=== PATIENT | female | born 1940 | race Caucasian/White ===

== ENCOUNTER 2017-04-10 09:01 | Outpatient (CLI) | payer MEDICARE, OTHER ==
[2017-04-10 18:08] LABS: BASOPHILS # (AUTO) 0.1 10^3/uL (0.0-0.1); BASOPHILS % (AUTO) 0.8 %; EOSINOPHILS # (AUTO) 0.3 10^3/uL (0.0-0.7); EOSINOPHILS % (AUTO) 3.1 %; HGB - HEMOGLOBIN 13.7 g/dL (12.0-16.0); LYMPHOCYTES # (AUTO) 2.9 10^3/uL (1.5-3.5); LYMPHOCYTES % (AUTO) 32.9 %; MEAN CORPUSCULAR HEMOGLOBIN 29.9 pg (27.0-31.0); MEAN CORPUSCULAR HGB CONC 32.5 g/dL (32.0-36.0); MEAN PLATELET VOLUME 8.3 fL (7.9-10.8); MONOCYTES # (AUTO) 0.7 10^3/uL (0.0-1.0); MONOCYTES % (AUTO) 8.2 %; NEUTROPHILS # (AUTO) 4.9 10^3/uL (1.5-6.6); PLT - PLATELET COUNT 241 10^3/uL (130-450); RED BLOOD COUNT 4.59 10^6/uL (4.20-5.40); RED CELL DISTRIBUTION WIDTH 13.2 % (12.0-15.0); WHITE BLOOD COUNT 8.9 x10^3/uL (4.8-10.8)
[2017-04-10 18:16] LABS: ALBUMIN/GLOBULIN RATIO 1.3 (1.0-2.2); ALKALINE PHOSPHATASE 73 IU/L (42-121); ALT ALANINE AMINOTRANSFERASE 16 IU/L (10-60); AST ASPARTATE AMINOTRANSFERASE 18 IU/L (10-42); BILIRUBIN,TOTAL 0.4 mg/dL (0.2-1.0); BUN - BLOOD UREA NITROGEN 18 mg/dL (6-20); CARBON DIOXIDE - CO2 26 mmol/L (21-32); CHLORIDE 104 mmol/L (101-111); CHOL/HDL RATIO 3.5 (<4.4); CHOLESTEROL 145 mg/dL; CREATININE 0.6 mg/dL (0.4-1.0); GFR - MDRD 97 (>89); GLUCOSE 97 mg/dL (70-100); HDL CHOLESTEROL 42 mg/dL; LDL CHOLESTEROL,CALCULATED 79 mg/dL; LDL/HDL RATIO 1.9 (<4.4); SODIUM 137 mmol/L (135-145); VLDL CHOLESTEROL 24 mg/dL
== END 2017-04-10 09:02 | disposition home or self-care (01) ==
LOC: LAB.F 09:01
PROVIDERS: ATTEND Physician Assistant Medical
DX: I10 Essential (primary) hypertension (principal); E55.9 Vitamin D deficiency, unspecified; E78.5 Hyperlipidemia, unspecified
CPT/HCPCS: 36415; 80053; 80061; 82306; 85025

== ENCOUNTER 2017-04-19 12:03 | Observation (INO) | payer MEDICARE, OTHER ==
[2017-04-19 12:44] LABS: BASOPHILS # (AUTO) 0.1 10^3/uL (0.0-0.1); BASOPHILS % (AUTO) 0.7 %; EOSINOPHILS # (AUTO) 0.2 10^3/uL (0.0-0.7); EOSINOPHILS % (AUTO) 2.3 %; HGB - HEMOGLOBIN 13.8 g/dL (12.0-16.0); LYMPHOCYTES # (AUTO) 3.1 10^3/uL (1.5-3.5); LYMPHOCYTES % (AUTO) 35.7 %; MEAN CORPUSCULAR HGB CONC 33.5 g/dL (32.0-36.0); MEAN CORPUSCULAR VOLUME 89.7 fL (81.0-99.0); MEAN PLATELET VOLUME 7.8 fL (7.9-10.8); MONOCYTES # (AUTO) 0.6 10^3/uL (0.0-1.0); MONOCYTES % (AUTO) 6.9 %; NEUTROPHILS # (AUTO) 4.7 10^3/uL (1.5-6.6); NEUTROPHILS % (AUTO) 54.4 %; PLT - PLATELET COUNT 227 10^3/uL (130-450); RED BLOOD COUNT 4.59 10^6/uL (4.20-5.40); RED CELL DISTRIBUTION WIDTH 13.2 % (12.0-15.0); WHITE BLOOD COUNT 8.6 x10^3/uL (4.8-10.8)
[2017-04-19 12:56] LABS: ALBUMIN/GLOBULIN RATIO 1.2 (1.0-2.2); BILIRUBIN,TOTAL 0.6 mg/dL (0.2-1.0); CALCIUM 9.5 mg/dL (8.5-10.3); CREATININE 0.7 mg/dL (0.4-1.0); TOTAL PROTEIN 7.3 g/dL (6.7-8.2)
--- NOTE | 2017-04-19 13:20 | XRAY Preliminary Report ---
Exam: XR CHEST 1 VIEW X-RAY IMPRESSION: 1. Clear lungs. 2. Tortuous aorta versus hiatal hernia. [facility] SITE ID: [id number]
--- NOTE | 2017-04-19 13:20 | XRAY Report ---
EXAM: CHEST RADIOGRAPHY EXAM DATE: 04/19/2017 12:49 PM. CLINICAL HISTORY: Chest pain COMPARISON: None. TECHNIQUE: 1 view. FINDINGS: Lungs/Pleura: No focal opacities evident. No pleural effusion. No pneumothorax. Mediastinum: There is a retrocardiac double density which is consistent with a tortuous aorta or hiat al hernia. The heart size appears upper normal. Other: None. IMPRESSION: 1. Clear lungs. 2. Tortuous aorta versus hiatal hernia. [facility] Referring Provider Line: [phone] SITE ID: [id number]
[2017-04-19] MEDS ORDERED: NITROGLYCERIN 2% PASTE TOP STA (13:41)
[2017-04-19] MEDS ORDERED: ASPIRIN CHEW 81 MG TABLET PO STA (13:41)
--- NOTE | 2017-04-19 13:50 | ED Physician Documentation ---
History of Present Illness - Stated complaint Stated Complaint: CHEST PX - Chief complaint Chief Complaint: Cardiac - Additonal information Additional information: hx from pt 76 female known CAD s/p stent 4 yr ago at [facility] in [place] this AM she had chest pain, started about 10 AM, 7/10 severity, felt similar to sx she had prior to her stent, no soa diaphoreis NV took 3 nitro over next 2 hr s relief does not take asa or plavix regularly went to [facility] and pain subsided down to 3/10 but not resolved Review of Systems Constitutional: denies: Fever, Chills, Fatigue, Sweats Throat: denies: Sore throat Cardiac: reports: Chest pain / pressure. denies: Palpitations Respiratory: denies: Dyspnea, Cough GI: denies: Abdominal Pain Musculoskeletal: denies: Neck pain, Back pain, Extremity pain, Extremity swelling Endocrine: denies: Easy bruising / bleeding Immunocompromised: denies: Immunocompromised PD PAST MEDICAL HISTORY - Present Medications Home Medications: Ambulatory Orders Medication Instructions Recorded Confirmed Atorvastatin [Lipitor] 40 mg PO DAILY 04/19/17 04/19/17 Ibuprofen [Motrin] 800 mg PO Q8H PRN 04/19/17 04/19/17 Losartan [Cozaar] 25 mg PO DAILY 04/19/17 04/19/17 Propranolol [Inderal] 04/19/17 - Allergies Allergies/Adverse Reactions: Allergies Allergy/AdvReac Type Severity Reaction Status Date / Time codeine Allergy Nausea Verified 04/19/17 12:10 morphine Allergy Nausea Verified 04/19/17 12:10 - Social History Does the pt smoke?: No Smoking Status: Never smoker PD ED PE NORMAL - Vitals Vital signs reviewed: Yes - Neck Neck: Supple, no meningeal sign - Cardiac Cardiac: RRR - Respiratory Respiratory: No respiratory distress, Clear bilaterally - Abdomen Abdomen: Soft, Non tender - Derm Derm: Normal color - Extremities Extremities: No edema, No calf tenderness / cord - Neuro Neuro: Alert and oriented X 3 Results - Vitals Vitals: Vital Signs - 24 hr 04/19/17 12:07 Temperature 36.0 C L Heart Rate 60 Respiratory 18 Rate Blood Pressure 191/67 H O2 Saturation 98 Oxygen O2 Source Room air - EKG (time done) 1215 Rate: Rate (enter#) (55) Rhythm: Atrial flutter Ischemia: Non specific changes (biphasic t waves laterally) - Labs Labs: Laboratory Tests 04/19/17 04/19/17 04/19/17 12:30 12:30 12:30 WBC 8.6 RBC 4.59 Hgb 13.8 Hct 41.2 MCV 89.7 MCH 30.0 MCHC 33.5 RDW 13.2 Plt Count 227 MPV 7.8 L Neut # 4.7 Lymph # 3.1 Gates # 0.6 Eos # 0.2 Baso # 0.1 Absolute Nucleated RBC 0.01 Nucleated RBC % 0.1 Sodium 136 Potassium 4.0 Chloride 100 L Carbon Dioxide 26 Anion Gap 10.0 BUN 19 Creatinine 0.7 Estimated GFR (MDRD) 81 L Glucose 99 Calcium 9.5 Total Bilirubin 0.6 AST 23 ALT 19 Alkaline Phosphatase 71 Troponin I < 0.04 Total Protein 7.3 Albumin 4.0 Globulin 3.3 Albumin/Globulin Ratio 1.2 Lipase 19 L - Rads (name of study) CXR Radiology: See rad report (NACPD, toruous aorta, HH) PD MEDICAL DECISION MAKING - ED course ED course: known CAD same sx as prior CAD onset 10 AM so approx 3 hr ago abn EKG trying to get old to compare gave nitro paste and asa no BB as already on and HR 60 old records obtained and EKG is changed HEART score 6 - will admit for serial enzymes and stress testing pain down to "between 0 and 1" at time of admit Departure - Departure Disposition: ED Place in Observation Clinical Impression: Chest pain Qualifiers: Chest pain type: unspecified Qualified Code(s): R07.9 - Chest pain, unspecified Discharge Date/Time: 04/19/17 15:19
[2017-04-19] MEDS ORDERED: SODIUM CHLORIDE FLUSH 0.9% 10 ML SYRINGE IVP PRN (14:04)
[2017-04-19] MEDS ORDERED: PROCHLORPERAZINE 10 MG/2 ML VIAL IVP PRN (14:04)
[2017-04-19] MEDS ORDERED: MORPHINE 2 MG/ML CARPUJECT IVP PRN (14:04)
[2017-04-19] MEDS ORDERED: oxyCODONE 5 MG TABLET PO PRN (14:04)
[2017-04-19] MEDS ORDERED: NITROGLYCERIN SL 0.4 MG TABLET SL PRN (14:04)
--- NOTE | 2017-04-19 14:34 | HISTORY & PHYSICAL EXAMINATION ---
Chief Complaint - Chief Complaint Chief Complaint: Chest Pain Chest Pain Admission HPI - Admitted From Admitted from: ED - History Obtained From Records Reviewed: RN notes reviewed History obtained from: Patient, Family Exam limitations: No limitations - History of Present Illness Severity at the worst: reports: Moderate Pain Quality: reports: Dull, Aching Context-Pain started w/: reports: Rest Timing: reports: Intermittent Improved with: reports: Rest Worsened by: reports: Exertion Associated symptoms: reports: General Weakness PMH/PSH - Past Medical History Cardiovascular: positive: Hypertension, High cholesterol, Coronary artery disease Respiratory: positive: None Neuro: positive: None Endocrine/Autoimmune: positive: None GI: positive: None 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 - Social History Does the pt smoke?: No Smoking Status: Never smoker Does the pt drink ETOH?: No Does the pt have substance abuse?: No - POLST Patient has POLST: No POLST Status: Full Code - Family History Family History: Mother: , COPD/Emphysema, Father: , Other family : Hyperlipidemia, Hypertension Meds/Allgy - Home Medications Home Medications: Ambulatory Orders Medication Instructions Recorded Confirmed Atorvastatin [Lipitor] 40 mg PO DAILY 04/19/17 04/19/17 Losartan [Cozaar] 04/19/17 Propranolol [Inderal] 04/19/17 - Allergies Allergies/Adverse Reactions: Allergies Allergy/AdvReac Type Severity Reaction Status Date / Time codeine Allergy Nausea Verified 04/19/17 12:10 morphine Allergy Nausea Verified 04/19/17 12:10 Review of Systems - Constitutional Constitutional: reports: Weakness. denies: Fever, Chills, Malaise - Eyes Eyes: denies: Pain, Irritation, Blurred vision - Ears, Nose & Throat Ears, Nose & Throat: denies: Ear pain, Hearing loss, Tinnitus, Vertigo, Nasal pain - Cardiovascular Cariovascular: reports: Chest pain. denies: Irregular heart rate, Palpitations , Edema, Syncope - Respiratory Respiratory: denies: Cough, Sputum production, Wheezing, Snoring, Hemoptysis - Gastrointestinal Gastrointestinal: denies: Abdominal pain, Constipation, Diarrhea, Change in bowel habits, Rectal bleeding - Genitourinary Genitourinary: denies: Dysuria, Frequency, Urgency, Hematuria - Musculoskeletal Musculoskeletal: denies: Muscle pain, Muscle aches, Stiffness, Gout - Integumentary Integumentary: denies: Rash, Pruritis, Lesions, Acne - Neurological Neurological: denies: Focal weakness, Headache, Dizziness, Numbness, Memory problems - Psychiatric Psychiatric: denies: Depression, Anxiety, Suicidal, Hallucinations - Endocrine Endocrine: denies: Polyuria, Polydypsia, Polyphagia - Hematologic/Lymphatic Hematologic/Lymphatic: denies: Anemia, Bruising, Petechiae, Lymphadenopathy - All Other Systems All Other Systems: reports: Reviewed and negative Exam - Vital Signs Vital Signs: Vital Signs x48h Temp Pulse Resp BP Pulse Ox 04/19/17 12:07 36.0 C L 60 18 191/67 H 98 Results - Lab Results Fish Bones: 04/19/17 12:30 04/19/17 12:30 Other Lab Results: Lab Results x24hrs 04/19/17 04/19/17 04/19/17 Range/Units 12:30 12:30 12:30 WBC 8.6 (4.8-10.8) x10^3/uL RBC 4.59 (4.20-5.40) 10^6/uL Hgb 13.8 (12.0-16.0) g/dL Hct 41.2 (37.0-47.0) % MCV 89.7 (81.0-99.0) fL MCH 30.0 (27.0-31.0) pg MCHC 33.5 (32.0-36.0) g/dL RDW 13.2 (12.0-15.0) % Plt Count 227 (130-450) 10^3/uL MPV 7.8 L (7.9-10.8) fL Neut # 4.7 (1.5-6.6) 10^3/uL Lymph # 3.1 (1.5-3.5) 10^3/uL [place] # 0.6 (0.0-1.0) 10^3/uL Eos # 0.2 (0.0-0.7) 10^3/uL Baso # 0.1 (0.0-0.1) 10^3/uL Absolute Nucleated RBC 0.01 x10^3/uL Nucleated RBC % 0.1 /100WBC Sodium 136 (135-145) mmol/L Potassium 4.0 (3.5-5.0) mmol/L Chloride 100 L (101-111) mmol/L Carbon Dioxide 26 (21-32) mmol/L Anion Gap 10.0 (6-13) BUN 19 (6-20) mg/dL Creatinine 0.7 (0.4-1.0) mg/dL Estimated GFR (MDRD) 81 L (>89) Glucose 99 (70-100) mg/dL Calcium 9.5 (8.5-10.3) mg/dL Total Bilirubin 0.6 (0.2-1.0) mg/dL AST 23 (10-42) IU/L ALT 19 (10-60) IU/L Alkaline Phosphatase 71 (42-121) IU/L Troponin I < 0.04 (<0.49) ng/mL Total Protein 7.3 (6.7-8.2) g/dL Albumin 4.0 (3.2-5.5) g/dL Globulin 3.3 (2.1-4.2) g/dL Albumin/Globulin Ratio 1.2 (1.0-2.2) Lipase 19 L (22-51) U/L ARRA - Anticipated LOS Anticipated Stay Length: Less than 2 midnights - AMI - Statin at Admit Aspirin Prescribed on Admit: Yes - DVT/VTE - Prophylaxis VTE/DVT Device ordered at admit?: Yes CP/CHF Plan - Plan Patient Problems: All Active Problems Chest pain (Acute)
[2017-04-19] MEDS ORDERED: LORazepam 2 MG/ML VIAL IVP STA (14:47)
[2017-04-19] MEDS: D5.45NS W/20 MEQ KCL 1,000 ML IV SCH (15:22)
[2017-04-19 19:30] LABS: CREATININE 0.9 mg/dL (0.4-1.0)
[2017-04-19] MEDS ORDERED: ATORVASTATIN 40 MG TABLET PO SCH (21:00)
[2017-04-19] MEDS: SODIUM CHLORIDE FLUSH 0.9% 10 ML SYRINGE IVP SCH (21:01)
[2017-04-19] MEDS: IBUPROFEN 600 MG TABLET PO SCH (22:07)
[2017-04-20] MEDS: IBUPROFEN 600 MG TABLET PO SCH ×2 (00:23→06:12)
[2017-04-20] MEDS: D5.45NS W/20 MEQ KCL 1,000 ML IV SCH (00:23)
[2017-04-20] MEDS: SODIUM CHLORIDE FLUSH 0.9% 10 ML SYRINGE IVP SCH (03:20)
[2017-04-20] MEDS ORDERED: LOSARTAN 50 MG TABLET PO SCH (09:00)
[2017-04-20] MEDS ORDERED: POLYETHYLENE GLYCOL 3350 17 GM PACKET PO SCH (09:00)
[2017-04-20 09:47] VITALS: BP 139/62
--- NOTE | 2017-04-20 10:34 | Discharge Plan ---
Discharge Plan Disposition: 01 Home, Self Care Condition: Fair Diet: Regular Activity Restrictions: Activity as Tolerated Shower Restrictions: No Driving Restrictions: No Weight Bearing: Full Weight No Smoking: If you smoke, Please STOP! Call for help.
--- NOTE | 2017-04-20 10:45 | DISCHARGE SUMMARY ---
Discharge Summary Admit Date: 04/19/17 Discharge Date: 04/20/17 Discharging Provider: Shamika Turk DO Primary Care Provider: Paola Frakn Code Status: Attempt Resuscitation Condition at Discharge: Fair Discharge Disposition: Home, Self Care - DIAGNOSES Admission Diagnoses: Chest pain Discharge Diagnoses with Status of Each Condition: Chest pain- resolved, troponins -x3, no new EKG changes seen. Patient will be discharged home and will follow-up with primary care provider, Paola Frank, and will see a community certified family mediator as well. - HPI History of Present Illness: Maryellen Obrien is a very pleasant 76 year old woman who has had gradually worsening chest pain over the last day or so. She denies any significant shortness of breath or radiation nausea, or vomiting. She has a history significant for high blood pressure, hypercholesterolemia, and coronary artery disease. These complaints and to rule out an acute myocardial event. The first set of troponins have been negative. - HOSPITAL COURSE Hospital Course: Maryellen Obrien is a very pleasant 76 year old woman who has had gradually worsening chest pain over the last day or so. She denies any significant shortness of breath or radiation nausea, or vomiting. She has a history significant for high blood pressure, hypercholesterolemia, and coronary artery disease. These complaints and to rule out an acute myocardial event. The troponins were negative, and there were no new EKG changes noted. The pt's chest pain resolved. She will be discharged home and will follow up with Dr. Paola Frank and a community certified family mediator.. - ALLERGIES Allergies/Adverse Reactions: Allergies Allergy/AdvReac Type Severity Reaction Status Date / Time codeine Allergy Nausea Verified 04/19/17 12:10 morphine Allergy Nausea Verified 04/19/17 12:10 - MEDICATIONS Home Medications: Ambulatory Orders Medication Instructions Recorded Confirmed Atorvastatin [Lipitor] 40 mg PO DAILY 04/19/17 04/19/17 Ibuprofen [Motrin] 800 mg PO Q8H PRN 04/19/17 04/19/17 Losartan [Cozaar] 25 mg PO DAILY 04/19/17 04/19/17 Propranolol [Inderal] 20 mg PO DAILY 04/19/17 04/20/17 Ibuprofen [Motrin] 600 mg PO Q6HR tablet 04/20/17 Losartan [Cozaar] 25 mg PO DAILY tablet 04/20/17 - PHYSICAL EXAM AT DISCHARGE General Appearance: positive: No acute distress, Alert Eyes Bilateral: positive: Normal inspection, PERRL, EOMI ENT: positive: ENT inspection nml, Pharynx nml, No signs of dehydration Neck: positive: Nml inspection, Thyroid nml, No JVD, Trachea midline. negative : Thyromegaly Respiratory: positive: Chest non-tender, No respiratory distress, Breath sounds nml. negative: Wheezes, Rales, Rhonchi Cardiovascular: positive: Regular rate & rhythm, No murmur, No gallop Peripheral Pulses: positive: 1+ Abdomen: positive: Non-tender, No organomegaly, Nml bowel sounds, No distention. negative: Tenderness Back: positive: Nml inspection. negative: CVA tenderness (R), CVA tenderness (L ) Skin: positive: Color nml, No rash, Warm, Dry. negative: Cyanosis Extremities: positive: Non-tender, Full ROM, Nml appearance Neurologic/Psychiatric: positive: Oriented x3, CN's nml (2-12), Motor nml, Sensation nml, Mood/affect nml - LABS Result Diagrams: 04/19/17 12:30 04/19/17 19:18 - FOLLOW UP Follow Up: With Dr. Paola Frank and a community certified family mediator. - TIME SPENT Time Spent in Discharge (Minutes): 40
[2017-04-21] MEDS ORDERED: PROPRANOLOL 10 MG TABLET PO SCH (09:00)
== END 2017-04-20 11:05 | disposition home or self-care (01) ==
LOC: ED 12:03 → OBS 14:04
PROVIDERS: ADMIT Hospitalist; ATTEND Hospitalist
DX: R07.9 Chest pain, unspecified (principal); I25.10 Atherosclerotic heart disease of native coronary artery without angina pectoris; I10 Essential (primary) hypertension; E78.00 Pure hypercholesterolemia, unspecified; Z95.5 Presence of coronary angioplasty implant and graft
CPT/HCPCS: 36415; 71045; 80048; 80053; 83690; 84484; 85025; 93005; 96361; 96374; 99283; 99284; A9270; G0378; J2060

== ENCOUNTER 2017-11-02 09:39 | Outpatient (CLI) | payer MEDICARE, OTHER ==
--- NOTE | 2017-11-02 13:14 | DEXA Report ---
Procedure Date: 11/02/2017 Accession Number: [id number] / [id number] Procedure: DEX - Dexa Spine and/or Hip CPT Code: FULL RESULT: EXAM: Dexa Spine and/or Hip DATE: 11/02/2017 11:05 AM CLINICAL HISTORY: POSTMENOPAUSAL STATUS TECHNIQUE: Dual energy x-ray absorptiometry (DXA) was performed on a VocalZoom System. Regions measured are the AP Spine, femoral neck, and if needed forearm. COMPARISON: None. In accordance with the International Society for Clinical Densitometry (ISCD) guidelines, data from previous exams may be reanalyzed using current recommendations and techniques. This is done to allow a more accurate basis for comparison with the current study. FINDINGS: The data for the lumbar spine is as follows: BMD (g/cm/cm) T-SCORE Z-SCORE REGION L1 1.056 -0.6 0.0 L2 1.170 -0.2 0.4 L3 1.214 0.1 0.7 L4 1.271 0.6 1.2 TOTAL 1.189 0.1 0.7 NOTE: All evaluable vertebrae are used for classification The data for the hip is as follows: BMD (g/cm/cm) T-SCORE Z-SCORE REGION Neck 0.805 -1.7 -0.4 TOTAL 0.944 -0.5 0.5 IMPRESSION: THE WHO CLASSIFICATION BASED ON THE INTERNATIONAL REFERENCE STANDARD IS OSTEOPENIA. THE FRACTURE RISK IS INCREASED. RECOMMENDATION: Patients with diagnosis of osteoporosis or osteopenia should have regular bone mineral density assessment. For those eligible for Medicare, routine testing is allowed once every 2 years. Testing frequency can be increased for patients who have rapidly progressing disease or for those who are receiving medical therapy to restore bone mass. COMMENT: World Health Organization (WHO) definitions for osteoporosis and osteopenia: NORMAL BMD: T-score at -1.0 or higher, fracture risk is low OSTEOPENIA BMD: T-score between -1.0 and -2.5, fracture risk is increased. OSTEOPOROSIS BMD: T-score at -2.5 or lower, fracture risk is high. National Osteoporosis Foundation recommends: 1. Obtain adequate dietary calcium (at least 1200 mg per day) and vitamin D (400-800 international units per day). 2. Participate, as appropriate, in regular weightbearing and muscle-strengthening exercise. 3. Avoid tobacco use and reduce alcohol and caffeine intake. 4. For more detailed information see the website at www.NOF.org.
== END 2017-11-02 09:40 | disposition home or self-care (01) ==
LOC: DI 09:39
PROVIDERS: ATTEND Physician Assistant Medical
DX: Z78.0 Asymptomatic menopausal state (principal); M85.89 Other specified disorders of bone density and structure, multiple sites
CPT/HCPCS: 77080

== ENCOUNTER 2017-12-01 09:57 | Emergency (ER) | payer MEDICARE, OTHER ==
--- NOTE | 2017-12-01 11:02 | ED Physician Documentation ---
PD HPI SKIN - Stated complaint Stated Complaint: BREAST DISCOMFORT - Chief complaint Chief Complaint: General - History obtained from History obtained from: Patient - History of Present Illness Timing - onset: How many days ago (few) Timing - duration: Days (few) Timing - details: Gradual onset, Still present Location: Chest (under breast) Quality / character: Painful (locally and pain wrapping around to the side of chest), Discolored (red). 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 : None HEENT: None Psych: None Musculoskeletal: None Derm: None - Past Surgical History Past Surgical History: Yes General: Cholecystectomy Ortho: Rotator cuff repair, 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: Hysterectomy Cardiovascular: Coronary stent HEENT: Tonsil/Adenoidectomy - Present Medications Home Medications: Ambulatory Orders Medication Instructions Recorded Confirmed Atorvastatin [Lipitor] 40 mg PO DAILY 04/19/17 04/19/17 Ibuprofen [Motrin] 800 mg PO Q8H PRN 04/19/17 04/19/17 Losartan [Cozaar] 25 mg PO DAILY 04/19/17 04/19/17 Propranolol [Inderal] 20 mg PO DAILY 04/19/17 04/20/17 Ibuprofen [Motrin] 600 mg PO Q6HR tablet 04/20/17 Losartan [Cozaar] 25 mg PO DAILY tablet 04/20/17 - Allergies Allergies/Adverse Reactions: Allergies Allergy/AdvReac Type Severity Reaction Status Date / Time codeine Allergy Nausea Verified 12/01/17 10:05 morphine Allergy Nausea Verified 12/01/17 10:05 - Social History Does the pt smoke?: No Smoking Status: Never smoker Does the pt drink ETOH?: No Does the pt have substance abuse?: No - Immunizations Immunizations are current?: Yes - POLST Patient has POLST: No POLST Status: Full Code PD ED PE NORMAL - Vitals Vital signs reviewed: Yes - General General: Alert and oriented X 3, No acute distress, Well developed/nourished - Neck Neck: Supple, no meningeal sign, No adenopathy - Cardiac Cardiac: RRR, No murmur - Respiratory Respiratory: Clear bilaterally - Abdomen Abdomen: Normal bowel sounds, Soft, Non tender, Non distended - Derm Derm: Warm and dry, Other (underside of right breast with single round shaped sore with superficial ulceration and red base. About 2 cm diameter. Nonvesicular. No other rash spots. No fluctuance nor induration below it. the back is without tenderness nor rash. ) Results - Vitals Vitals: Oxygen O2 Source Room air PD MEDICAL DECISION MAKING - ED course Complexity details: considered differential (single isolated skin sore under breast. No other spots. It is rounded and not vesicular. So presume bacterial and does not have shingles pattern, even though some pain wraps around to the back, but not skin sensitive there. ), d/w patient - Sepsis Event Vital Signs: Oxygen O2 Source Room air Departure - Departure Disposition: 01 Home, Self Care Clinical Impression: Skin infection, bacterial Condition: Stable Instructions: ED Staph Infec Abx Tx Only Comments: Clean the area with soap and water to 3 times a day and apply mupirocin antibiotic ointment. Take oral Bactrim twice daily for the next 5 or 6 days. Recheck if it is not improved in the next few days. Recheck if it worsens or you develop other skin lesions. Discharge Date/Time: 12/01/17 12:37
[2017-12-01] MEDS ORDERED: MUPIROCIN 2% OINT 1 GM TOP STA (12:15)
[2017-12-01] MEDS ORDERED: SULFAMETH/TRIMETH DS 800/160 MG TABLET PO STA (12:15)
[2017-12-01 12:28] VITALS: BP 141/81
== END 2017-12-01 12:37 | disposition home or self-care (01) ==
LOC: ED 09:57
DX: L08.9 Local infection of the skin and subcutaneous tissue, unspecified (principal); B96.89 Other specified bacterial agents as the cause of diseases classified elsewhere; I10 Essential (primary) hypertension; I25.10 Atherosclerotic heart disease of native coronary artery without angina pectoris
CPT/HCPCS: 99283; A9270

== ENCOUNTER 2018-06-27 14:00 | Emergency (ER) | payer MEDICARE, OTHER ==
--- NOTE | 2018-06-27 14:20 | ED Physician Documentation ---
PD HPI LOWER EXT INJURY - Stated complaint Stated Complaint: RT LEG PAIN - Chief complaint Chief Complaint: Ext Problem - History obtained from History obtained from: Patient - History of Present Illness PD HPI LOW EXT INJURY LOCATION: Right, Knee Type of injury: Fall (she had fallen and struck buttock a week ago or so. Some tender there. Now with few days of pain, tender at gluteal area and down lateral right leg to the knee level. No swelling of leg, no pain in lower leg/foot.). No: Twist Timing - onset: How many weeks ago (1) Timing - duration: Weeks (1) Timing - details: Gradual onset, Still present Worsened by: Moving, Palpating (right gluteal area) Associated symptoms: No: Weakness, Numbness, Swelling Similar symptoms before: Has not had sx before Recently seen: Not recently seen Review of Systems Constitutional: denies: Fever, Chills, Myalgias Nose: denies: Rhinorrhea / runny nose, Congestion Throat: denies: Sore throat Respiratory: denies: Cough PD PAST MEDICAL HISTORY - Past Medical History Cardiovascular: Hypertension, High cholesterol, Coronary artery disease Respiratory: None Endocrine/Autoimmune: None GI: None 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 HEENT: None Psych: None Musculoskeletal: None Derm: None - Past Surgical History Past Surgical History: Yes General: Cholecystectomy Ortho: Rotator cuff repair, 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 Cardiovascular: Coronary stent HEENT: Tonsil/Adenoidectomy - Present Medications Home Medications: Ambulatory Orders Medication Instructions Recorded Confirmed Atorvastatin [Lipitor] 40 mg PO DAILY 04/19/17 06/27/18 Ibuprofen [Motrin] 800 mg PO Q8H PRN 04/19/17 04/19/17 Propranolol [Inderal] 20 mg PO DAILY 04/19/17 06/27/18 Ibuprofen [Motrin] 600 mg PO Q6HR tablet 04/20/17 Losartan [Cozaar] 25 mg PO DAILY tablet 04/20/17 06/27/18 - Allergies Allergies/Adverse Reactions: Allergies Allergy/AdvReac Type Severity Reaction Status Date / Time codeine Allergy Nausea Verified 06/27/18 14:56 morphine Allergy Nausea Verified 06/27/18 14:56 - Social History Does the pt smoke?: No Smoking Status: Never smoker Does the pt drink ETOH?: No Does the pt have substance abuse?: No - Immunizations Immunizations are current?: Yes - POLST Patient has POLST: No POLST Status: Full Code PD ED PE NORMAL - Vitals Vital signs reviewed: Yes - General General: Alert and oriented X 3, No acute distress, Well developed/nourished - Abdomen Abdomen: Soft, Non tender - Back Back: No spinal TTP - Derm Derm: Normal color, Warm and dry, No rash - Extremities Extremities: No edema, No calf tenderness / cord, Other (right gluteal area focally tender at inferior ramus. Palpation there gives pain down posterolateral thigh. ) - Neuro Neuro: No motor deficit, No sensory deficit Results - Vitals Vitals: Vital Signs - 24 hr 06/27/18 06/27/18 14:04 15:28 Temperature 36.5 C 36.1 C L Heart Rate 65 58 L Respiratory 16 16 Rate Blood Pressure 154/65 H 162/61 H O2 Saturation 100 97 Oxygen O2 Source Room air - Rads (name of study) pelvis 1 view Radiology: Prelim report reviewed, EMP read contemporaneously, See rad report Procedures - General procedure General procedure: trigger point injection at right ischial ramus area that is tender, using Marcaine and Kenalog without problems. PD MEDICAL DECISION MAKING - ED course Complexity details: reviewed results, considered differential, d/w patient Departure - Departure Disposition: 01 Home, Self Care Clinical Impression: Radicular leg pain Contusion of buttock Qualifiers: Encounter type: initial encounter Qualified Code(s): S30.0XXA - Contusion of lower back and pelvis, initial encounter Condition: Stable Record reviewed to determine appropriate education?: Yes Follow-Up: Paola Frank PA-C [Primary Care Provider] - Comments: Continue ibuprofen 400-600 mg 2-3 times a day. Add Tylenol 650 mg 4 times a day if needed for pain. Massage and gentle stretching for the sore area in the buttock. This seems likely contusion with some irritation of the nerve which is causing the pain down the leg. At this point it does not clinically seem like a blood clot. Recheck if you have swelling in the lower leg or calf swelling or pain along the back of the calf or inside of the thigh. Regarding gluteal pain, follow-up with your primary care if it is not better over a week. Discharge Date/Time: 06/27/18 15:43
[2018-06-27] MEDS ORDERED: HYDROcod/ACETAM 5/325 MG TABLET PO STA (14:35)
[2018-06-27] MEDS ORDERED: TRIAMCINOLONE 40 MG/ML VIAL IM STA (14:35)
--- NOTE | 2018-06-27 15:25 | XRAY Report ---
Reason: fell to right gluteal and pain there Procedure Date: 06/27/2018 Accession Number: [id number] / [id number] Procedure: XR - Pelvis 1 View CPT Code: FULL RESULT: EXAM: PELVIS RADIOGRAPHY EXAM DATE: 06/27/2018 02:51 PM. CLINICAL HISTORY: Fell to right gluteal and pain there. COMPARISON: None. TECHNIQUE: 1 view. FINDINGS: Bones: No cortical step-off or fracture is identified. Joints: Joint space and alignment appears within normal limits. Soft Tissues: Unremarkable. IMPRESSION: No visualized fracture or displacement. [facility]
[2018-06-27 15:30] VITALS: BP 162/61
== END 2018-06-27 15:43 | disposition home or self-care (01) ==
LOC: ED 14:00
DX: M79.651 Pain in right thigh (principal); M54.10 Radiculopathy, site unspecified; M79.18 Myalgia, other site; S30.0XXA Contusion of lower back and pelvis, initial encounter; W19.XXXA Unspecified fall, initial encounter; W22.8XXA Striking against or struck by other objects, initial encounter; I10 Essential (primary) hypertension; E78.00 Pure hypercholesterolemia, unspecified; I25.10 Atherosclerotic heart disease of native coronary artery without angina pectoris; Z95.5 Presence of coronary angioplasty implant and graft
CPT/HCPCS: 20552; 72170; 99283; A9270

== ENCOUNTER 2018-06-28 18:13 | Emergency (ER) | payer MEDICARE, OTHER ==
--- NOTE | 2018-06-28 19:34 | XRAY Report ---
Reason: rib pain Procedure Date: 06/28/2018 Accession Number: [id number] / [id number] Procedure: XR - Ribs w/PA Chest RT CPT Code: FULL RESULT: EXAM: RIGHT RIB RADIOGRAPHY EXAM DATE: 06/28/2018 06:41 PM. CLINICAL HISTORY: Rib pain. COMPARISON: CHEST 1 VIEW 04/19/2017 12:41 PM. TECHNIQUE: 1 view of the chest and 2 views of the ribs. FINDINGS: Bones: No acute fracture visualized. There is mild thoracolumbar scoliosis. Probable calcified loose bodies in the right shoulder joint. Lungs: No focal opacities. No pneumothorax. No pleural effusions. Mediastinum: Heart and mediastinal contours are unremarkable. Other: None. IMPRESSION: Negative chest and rib radiography. RADIA
--- NOTE | 2018-06-28 19:44 | ED Physician Documentation ---
History of Present Illness - Stated complaint Stated Complaint: RT RIB PX - Chief complaint Chief Complaint: Trauma Ch/Bk - History obtained from History obtained from: Patient, Family - History of Present Illness Timing: Today - Additonal information Additional information: Patient is a 77-year-old female with history of HTN, HLD, CAD presenting after mechanical fall earlier today during which she injured her right ribs. Patient reports that she was walking outside and accidentally tripped and landed on the ground on her right side ribs. Patient denies striking of head, loss of consciousness, or other injuries. Patient denies headache, neck pain, back pain, abdominal pain, as well as new vomiting, urinary changes, stool changes. Patient reports pain with breathing and coughing, as well as pain directly over her right ribs.No other improving or worsening factors specifically noted. Review of Systems Cardiac: reports: Other (Right rib pain) Respiratory: reports: Dyspnea, Cough PD PAST MEDICAL HISTORY - Past Medical History Past Medical History: Yes Cardiovascular: Hypertension, High cholesterol, Coronary artery disease Respiratory: None Neuro: None Endocrine/Autoimmune: None GI: None EARRINGS FABRICATOR: None : None HEENT: None Psych: None Musculoskeletal: None Derm: None - Past Surgical History Past Surgical History: Yes General: Cholecystectomy Ortho: Rotator cuff repair, Other /EARRINGS FABRICATOR: Hysterectomy Cardiovascular: Coronary stent HEENT: Tonsil/Adenoidectomy - Present Medications Home Medications: Ambulatory Orders Medication Instructions Recorded Confirmed RX: Atorvastatin [Lipitor] 40 mg PO DAILY 04/19/17 06/27/18 RX: Ibuprofen [Motrin] 800 mg PO Q8H PRN 04/19/17 04/19/17 RX: Propranolol [Inderal] 20 mg PO DAILY 04/19/17 06/27/18 RX: Ibuprofen [Motrin] 600 mg PO Q6HR tablet 04/20/17 RX: Losartan [Cozaar] 25 mg PO DAILY tablet 04/20/17 06/27/18 - Allergies Allergies/Adverse Reactions: Allergies Allergy/AdvReac Type Severity Reaction Status Date / Time codeine Allergy Nausea Verified 06/28/18 18:19 morphine Allergy Nausea Verified 06/28/18 18:19 - Social History Does the pt smoke?: No Smoking Status: Never smoker Does the pt drink ETOH?: No Does the pt have substance abuse?: No - Immunizations Immunizations are current?: Yes - POLST Patient has POLST: No POLST Status: Full Code PD ED PE NORMAL - General General: Alert and oriented X 3, No acute distress, Well developed/nourished - HEENT HEENT: Atraumatic, Moist mucous membranes, Pharynx benign, Dentition benign - Neck Neck: No bony TTP - Cardiac Cardiac: RRR, No murmur, Other (Mild pain to anterior upper ribs, but moderate pain to anterior and midline lower right ribs. No pain to posterior right ribs.) - Respiratory Respiratory: No respiratory distress, Clear bilaterally - Derm Derm: Normal color, Warm and dry, No rash, Other (No ecchymosis) - Neuro Neuro: Alert and oriented X 3, No motor deficit, No sensory deficit - Psych Psych: Normal mood, Normal affect Results - Vitals Vitals: Vital Signs - 24 hr 06/28/18 06/28/18 18:18 20:02 Temperature 36.8 C 36.5 C Heart Rate 68 66 Respiratory 20 16 Rate Blood Pressure 148/87 H 143/97 H O2 Saturation 97 96 Oxygen O2 Source Room air PD MEDICAL DECISION MAKING - ED course Complexity details: reviewed results, considered differential, d/w patient, d/w family ED course: Most concerning for rib fracture or rib bruise given mechanical fall and striking out this area with pain overlying ribs only. Also consider chest wall injury and musculoskeletal injury. Painful obtained which not find evidence of rib fracture or other acute pathology. Patient adamantly denies other injuries and have low suspicion for intracranial, spine/spinal cord, abdominal, or other extremity injury at this time. Discussed supportive cares including use of incentive spirometry for rib injury, as well as pain medications, heat application, stretching and massage. Also described strict return precautions and appropriate follow-up. Patient and family voiced understanding and are comfortable with discharge plan. Departure - Departure Disposition: 01 Home, Self Care Clinical Impression: Rib injury Condition: Good Instructions: ED Contusion Vs Minor Fx Rib Follow-Up: Paola Frank PA-C [Primary Care Provider] - Within 3 Days Comments: There are no fractures or breaks found on the x-ray. However, you likely have a rib bruise that feels similar to having a fracture. Recommend use of incentive spirometry to avoid developing a pneumonia, as well as use of heat, massage, light stretching, ibuprofen/Tylenol as needed for pain and spasm relief. Please follow-up with primary care physician in next 2-3 days and return to ED sooner if expands worsening symptoms or other concerns. Discharge Date/Time: 06/28/18 20:21
[2018-06-28 20:02] VITALS: BP 143/97
== END 2018-06-28 20:21 | disposition home or self-care (01) ==
LOC: ED 18:13
DX: S29.9XXA Unspecified injury of thorax, initial encounter (principal); W01.0XXA Fall on same level from slipping, tripping and stumbling without subsequent striking against object, initial encounter; Y93.01 Activity, walking, marching and hiking; I10 Essential (primary) hypertension; E78.5 Hyperlipidemia, unspecified; I25.10 Atherosclerotic heart disease of native coronary artery without angina pectoris; Z95.5 Presence of coronary angioplasty implant and graft
CPT/HCPCS: 99283

== ENCOUNTER 2018-08-10 10:39 | Outpatient (CLI) | payer MEDICARE, OTHER ==
--- NOTE | 2018-08-19 08:51 | Mammography Report ---
Reason: SCREENING MAMMO Procedure Date: 08/10/2018 Accession Number: [id number] / [id number] Procedure: JG - Screening Mammo w/Patrice CPT Code: FULL RESULT: EXAM: Screening Mammo w/Patrice DATE: 08/10/2018 12:00 PM CLINICAL HISTORY: Screening encounter. No reported risk factors. TECHNIQUE: (B) - Bilateral CC and MLO views were obtained. COMPARISON: 06/28/2015 through 12/27/2013. PARENCHYMAL PATTERN: (A) - The breast(s) demonstrate(s) scattered fibroglandular densities. FINDINGS: There are coarse typically benign calcifications. A typically benign appearing right upper outer quadrant breast intramammary lymph nodes fatty hilum is stable. There are no suspicious masses, calcifications, or areas of distortion. IMPRESSION: Benign findings. BI-RADS category 2. RECOMMENDATION: (ANNUAL) - Recommend routine annual screening mammography. BI-RADS CATEGORY: (2) - Benign Findings. STANDARD QUALIFYING STATEMENTS: 1. This examination was not reviewed with the aid of Computer-Aided Detection (CAD). 2. A negative or benign imaging report should not preclude biopsy if clinically suspicious findings are present. 3. Dense breasts may obscure an underlying neoplasm. 4. This examination was reviewed with the aid of 3D breast imaging (tomosynthesis).
== END 2018-08-10 10:40 | disposition home or self-care (01) ==
LOC: DI 10:39
DX: Z12.31 Encounter for screening mammogram for malignant neoplasm of breast (principal)
CPT/HCPCS: 77063; 77067

== ENCOUNTER 2018-09-27 09:12 | Outpatient (CLI) | payer MEDICARE, OTHER ==
[2018-09-27 17:06] LABS: BASOPHILS # (AUTO) 0.1 10^3/uL (0.0-0.1); BASOPHILS % (AUTO) 0.7 %; EOSINOPHILS # (AUTO) 0.2 10^3/uL (0.0-0.7); EOSINOPHILS % (AUTO) 2.6 %; LYMPHOCYTES # (AUTO) 2.8 10^3/uL (1.5-3.5); LYMPHOCYTES % (AUTO) 34.2 %; MEAN CORPUSCULAR HEMOGLOBIN 30.3 pg (27.0-31.0); MEAN CORPUSCULAR HGB CONC 31.9 g/dL (32.0-36.0); MEAN PLATELET VOLUME 10.6 fL (7.9-10.8); MONOCYTES # (AUTO) 0.6 10^3/uL (0.0-1.0); MONOCYTES % (AUTO) 7.8 %; NEUTROPHILS # (AUTO) 4.4 10^3/uL (1.5-6.6); NEUTROPHILS % (AUTO) 54.3 %; PLT - PLATELET COUNT 266 10^3/uL (130-450); RED BLOOD COUNT 4.62 10^6/uL (4.20-5.40); RED CELL DISTRIBUTION WIDTH 13.4 % (12.0-15.0); WHITE BLOOD COUNT 8.2 x10^3/uL (4.8-10.8)
[2018-09-27 17:22] LABS: CHOL/HDL RATIO 3.2 (<4.4); CHOLESTEROL 152 mg/dL; HDL CHOLESTEROL 47 mg/dL; LDL CHOLESTEROL,CALCULATED 83 mg/dL; LDL/HDL RATIO 1.8 (<4.4); VLDL CHOLESTEROL 22 mg/dL
== END 2018-09-27 09:13 | disposition home or self-care (01) ==
LOC: LAB.S 09:12
PROVIDERS: ATTEND Physician Assistant Medical
DX: E78.5 Hyperlipidemia, unspecified (principal); I10 Essential (primary) hypertension
CPT/HCPCS: 36415; 80061; 83721; 85025

== ENCOUNTER 2018-11-28 13:13 | Emergency (ER) | payer MEDICARE, OTHER ==
--- NOTE | 2018-11-28 13:45 | ED Physician Documentation ---
PD HPI LOWER EXT INJURY - Stated complaint Stated Complaint: RT LEG SWELLING - Chief complaint Chief Complaint: Cardiac - History obtained from History obtained from: Patient - History of Present Illness PD HPI LOW EXT INJURY LOCATION: Right, Lower leg, Thigh Type of injury: Fall (few days ago, with some contusion of right knee.). No: Twist, Blunt / blow Timing - onset: Yesterday Timing - details: Gradual onset, Waxing and waning (has pain right lateral thigh and lower leg. no lower back pain.) Improved by: No: Rest Worsened by: Moving, Palpating Associated symptoms: No: Weakness, Numbness, Swelling Similar symptoms before: Has not had sx before Recently seen: Not recently seen Review of Systems Constitutional: denies: Fever, Chills Nose: denies: Rhinorrhea / runny nose, Congestion Throat: denies: Sore throat Cardiac: reports: Chest pain / pressure (some intermittent pains yesterday, but not today). 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: None : None HEENT: None Psych: None Musculoskeletal: None Derm: None - Past Surgical History Past Surgical History: Yes General: Cholecystectomy Ortho: Rotator cuff repair, Other /AUTOMOBILE DAMAGE FIELD APPRAISER: Hysterectomy Cardiovascular: Coronary stent HEENT: Tonsil/Adenoidectomy - Present Medications Home Medications: Ambulatory Orders Medication Instructions Recorded Confirmed Atorvastatin [Lipitor] 40 mg PO DAILY 04/19/17 06/27/18 Ibuprofen [Motrin] 800 mg PO Q8H PRN 04/19/17 04/19/17 Propranolol [Inderal] 20 mg PO DAILY 04/19/17 06/27/18 Ibuprofen [Motrin] 600 mg PO Q6HR tablet 04/20/17 Losartan [Cozaar] 25 mg PO DAILY tablet 04/20/17 06/27/18 - Allergies Allergies/Adverse Reactions: Allergies Allergy/AdvReac Type Severity Reaction Status Date / Time codeine Allergy Nausea Verified 11/28/18 13:29 morphine Allergy Nausea Verified 11/28/18 13:29 - Social History Does the pt smoke?: No Smoking Status: Never smoker Does the pt drink ETOH?: No Does the pt have substance abuse?: No - Immunizations Immunizations are current?: Yes - POLST Patient has POLST: No POLST Status: Full Code PD ED PE NORMAL - Vitals Vital signs reviewed: Yes - General General: Alert and oriented X 3, No acute distress, Well developed/nourished - Neck Neck: Supple, no meningeal sign, No adenopathy - Cardiac Cardiac: RRR, No murmur - Respiratory Respiratory: Clear bilaterally - Abdomen Abdomen: Normal bowel sounds, Soft, Non tender, Non distended - Back Back: No CVA TTP, No spinal TTP - Derm Derm: Normal color, Warm and dry, No rash - Extremities Extremities: No edema, No calf tenderness / cord, Other (right calf and inner thigh wtithout tenderness. Lateral thigh and lateral lower leg with some muscle tenderness, without rash. Normal sensation in the area. ) - Neuro Neuro: Alert and oriented X 3, No motor deficit, Normal speech Eye Opening: Spontaneous Motor: Obeys Commands Verbal: Oriented GCS Score: 15 Results - Vitals Vitals: Vital Signs - 24 hr 11/28/18 11/28/18 11/28/18 13:25 13:32 15:29 Temperature 36.5 C Heart Rate 76 60 Respiratory 18 16 Rate Blood Pressure 137/56 H 156/71 H Blood Pressure 155/57 H [Left] O2 Saturation 95 98 11/28/18 16:43 Temperature 36.6 C Heart Rate 60 Respiratory 21 Rate Blood Pressure 149/100 H Blood Pressure [Left] O2 Saturation 94 Oxygen O2 Source Room air - Labs Labs: Laboratory Tests 11/28/18 11/28/18 11/28/18 13:55 13:55 13:55 WBC 10.5 RBC 4.61 Hgb 14.0 Hct 43.0 MCV 93.3 MCH 30.4 MCHC 32.6 RDW 12.6 Plt Count 213 MPV 9.4 Neut # (Auto) 5.9 Lymph # (Auto) 3.4 [place] # (Auto) 0.8 Eos # (Auto) 0.2 Baso # (Auto) 0.1 Absolute Nucleated RBC 0.00 Nucleated RBC % 0.0 Sodium 138 Potassium 3.8 Chloride 106 Carbon Dioxide 25 Anion Gap 7.0 BUN 24 H Creatinine 0.7 Estimated GFR (MDRD) 81 L Glucose 110 H Calcium 8.9 Magnesium Total Bilirubin 0.7 AST 19 ALT 17 Alkaline Phosphatase 70 Total Creatine Kinase Troponin I High Sens 3.6 Total Protein 7.3 Albumin 3.7 Globulin 3.6 Albumin/Globulin Ratio 1.0 Lipase 23 11/28/18 13:55 WBC RBC Hgb Hct MCV MCH MCHC RDW Plt Count MPV Neut # (Auto) Lymph # (Auto) [place] # (Auto) Eos # (Auto) Baso # (Auto) Absolute Nucleated RBC Nucleated RBC % Sodium Potassium Chloride Carbon Dioxide Anion Gap BUN Creatinine Estimated GFR (MDRD) Glucose Calcium Magnesium 2.3 Total Bilirubin AST ALT Alkaline Phosphatase Total Creatine Kinase 34 Troponin I High Sens Total Protein Albumin Globulin Albumin/Globulin Ratio Lipase - Rads (name of study) duplex leg Radiology: Prelim report reviewed (no DVT), See rad report chest xray Radiology: Prelim report reviewed (no acute process. ), See rad report Departure - Departure Disposition: 01 Home, Self Care Clinical Impression: Right leg pain Muscle strain of right lower leg Qualifiers: Encounter type: initial encounter Qualified Code(s): S86.911A - Strain of unspecified muscle(s) and tendon(s) at lower leg level, right leg, initial encounter Condition: Stable Record reviewed to determine appropriate education?: Yes Instructions: ED Contusion Lower Ext Follow-Up: Paola Frank PA-C [Primary Care Provider] - Comments: No signs of blood clots or muscle breakdown or infection. Your chest x-ray is clear as well and no signs of heart failure or heart attack. I would presume your right leg pain is from muscle strain or inflammation since you have tenderness in the area. Consider a nerve inflammation as well or instead. Watch for signs of other symptoms such as rash or fevers to develop in the area. Recheck if those occur. Otherwise I would suggest an anti-inflammatory. This could be continuing your current meloxicam or instead using ibuprofen or naproxen. Additionally you can use Tylenol 2 tablets 4 times a day as needed for pain as well. This is not an NSAID and can be used in conjunction with the NSAIDs above. Follow-up with your primary care if not improved well over the next several days and return if worsening or other symptoms develop. Discharge Date/Time: 11/28/18 16:50
[2018-11-28 14:02] LABS: BASOPHILS # (AUTO) 0.1 10^3/uL (0.0-0.1); BASOPHILS % (AUTO) 0.7 %; EOSINOPHILS # (AUTO) 0.2 10^3/uL (0.0-0.7); EOSINOPHILS % (AUTO) 1.9 %; LYMPHOCYTES # (AUTO) 3.4 10^3/uL (1.5-3.5); LYMPHOCYTES % (AUTO) 32.8 %; MEAN CORPUSCULAR HEMOGLOBIN 30.4 pg (27.0-31.0); MEAN CORPUSCULAR HGB CONC 32.6 g/dL (32.0-36.0); MEAN CORPUSCULAR VOLUME 93.3 fL (81.0-99.0); MEAN PLATELET VOLUME 9.4 fL (7.9-10.8); MONOCYTES # (AUTO) 0.8 10^3/uL (0.0-1.0); NEUTROPHILS # (AUTO) 5.9 10^3/uL (1.5-6.6); NEUTROPHILS % (AUTO) 56.3 %; PLT - PLATELET COUNT 213 10^3/uL (130-450); RED BLOOD COUNT 4.61 10^6/uL (4.20-5.40); RED CELL DISTRIBUTION WIDTH 12.6 % (12.0-15.0); WHITE BLOOD COUNT 10.5 x10^3/uL (4.8-10.8)
[2018-11-28 14:14] LABS: ALBUMIN 3.7 g/dL (3.2-5.5); BILIRUBIN,TOTAL 0.7 mg/dL (0.2-1.0); CALCIUM 8.9 mg/dL (8.5-10.3); CREATININE 0.7 mg/dL (0.4-1.0); TOTAL PROTEIN 7.3 g/dL (6.7-8.2)
[2018-11-28 14:34] LABS: MAGNESIUM 2.3 mg/dL (1.7-2.8)
--- NOTE | 2018-11-28 14:40 | XRAY Report ---
Reason: chest discomfort Procedure Date: 11/28/2018 Accession Number: [id number] / [id number] Procedure: XR - Chest 1 View X-Ray CPT Code: 26780 FULL RESULT: EXAM: CHEST RADIOGRAPHY EXAM DATE: 11/28/2018 02:17 PM. CLINICAL HISTORY: Chest discomfort. COMPARISON: RIBS W/PA CHEST RT 06/28/2018 6:33 PM. TECHNIQUE: 1 view. FINDINGS: Lungs/Pleura: Unchanged mild linear basilar opacities likely reflect atelectasis. No other consolidation. No evidence for pleural effusion or pneumothorax. Mediastinum: Stable heart size and mediastinum. Atheromatous calcification of the aortic arch. Other: Subtle rounded density at the diaphragmatic hiatus possibly reflects a small hiatal hernia. IMPRESSION: No radiographic evidence for acute cardiopulmonary process. RADIA
--- NOTE | 2018-11-28 16:05 | Ultrasound Report ---
Reason: right leg pain and swelling Procedure Date: 11/28/2018 Accession Number: [id number] / [id number] Procedure: US - Duplex Ext Veins Right CPT Code: FULL RESULT: EXAM: RIGHT LOWER EXTREMITY VENOUS ULTRASOUND EXAM DATE: 11/28/2018 03:33 PM. CLINICAL HISTORY: Right leg pain and swelling. COMPARISON: None. TECHNIQUE: Real-time sonographic vascular imaging was performed by the youth specialist through the lower extremity utilizing both color-flow and Doppler spectral analysis. Multiple sales representative uniforms static images were saved for review. FINDINGS: Common Femoral Vein (CFV): Normal. CFV-GSV Junction: Normal. Profunda Femoral Vein (PFV): Normal. Femoral Vein (FV) Prox: Normal. Femoral Vein (FV) Mid: Normal. Femoral Vein (FV) Dist: Normal. Popliteal Vein: Normal. Posterior Tibial Veins: Normal. Peroneal Veins: Normal. Contralateral Side CFV: Normal. Other: None. IMPRESSION: No evidence for deep venous thrombosis. RADIA
[2018-11-28] MEDS ORDERED: ACETAMINOPHEN 325 MG TABLET PO STA (16:13)
[2018-11-28] MEDS ORDERED: KETOROLAC 30 MG/ML VIAL IVP STA (16:13)
[2018-11-28 16:44] VITALS: BP 149/100
== END 2018-11-28 16:50 | disposition home or self-care (01) ==
LOC: ED 13:13
DX: S86.911A Strain of unspecified muscle(s) and tendon(s) at lower leg level, right leg, initial encounter (principal); W19.XXXA Unspecified fall, initial encounter; I25.10 Atherosclerotic heart disease of native coronary artery without angina pectoris; Z95.5 Presence of coronary angioplasty implant and graft; I10 Essential (primary) hypertension
CPT/HCPCS: 36415; 71045; 80053; 82550; 83690; 83735; 84484; 85025; 93005; 93971; 96374; 99284; A9270

== ENCOUNTER 2020-12-15 19:01 | Emergency (ER) | payer MEDICARE, OTHER ==
[2020-12-15] MEDS ORDERED: HYDROcod/ACETAM 5/325 MG TABLET PO STA (19:36)
--- NOTE | 2020-12-15 19:37 | ED Physician Documentation ---
PD HPI LOWER EXT INJURY - Stated complaint Stated Complaint: PX IN RT KNEE - Chief complaint Chief Complaint: Ext Problem - History obtained from History obtained from: Patient - Additional information Additional information: 80-year-old woman who urine half ago had a nonoperative ACL and meniscus issue. Over the last 3 days without specific recent injury developed posterior right knee pain and inability to walk despite taking tramadol. No fevers. Review of Systems Constitutional: reports: Reviewed and negative Ears: reports: Reviewed and negative Nose: reports: Reviewed and negative Throat: reports: Reviewed and negative Cardiac: reports: Reviewed and negative PD PAST MEDICAL HISTORY - Past Medical History Cardiovascular: Hypertension, High cholesterol, Coronary artery disease Respiratory: None Neuro: None Endocrine/Autoimmune: None GI: None ENGINEERING INSTRUCTOR: None : None HEENT: None Psych: None Musculoskeletal: None Derm: None - Past Surgical History Past Surgical History: Yes General: Cholecystectomy Ortho: Rotator cuff repair, Other /ENGINEERING INSTRUCTOR: Hysterectomy Cardiovascular: Coronary stent HEENT: Tonsil/Adenoidectomy - Present Medications Home Medications: Ambulatory Orders Medication Instructions Recorded Confirmed Atorvastatin [Lipitor] 40 mg PO DAILY 04/19/17 12/15/20 Propranolol [Inderal] 20 mg PO DAILY 04/19/17 12/15/20 Losartan [Cozaar] 25 mg PO DAILY tablet 04/20/17 12/15/20 Acetaminophen [Tylenol] 650 mg PO Q6HR PRN 12/15/20 12/15/20 Aspirin [Hamler Aspirin] 81 mg PO DAILY PM 12/15/20 12/15/20 Clopidogrel [Plavix] 75 mg PO DAILY 12/15/20 12/15/20 Cyclobenzaprine [Flexeril] 10 mg PO Q8HR PRN 12/15/20 12/15/20 HYDROcod/ACETAM 5/325 [[place] 5/325] 1 - 2 tab PO Q6H PRN #15 tablet 12/15/20 Losartan Potassium 25 mg PO DAILY 12/15/20 12/15/20 Meloxicam [Mobic] 7.5 mg PO PRN 12/15/20 Metoprolol Succinate [Kapspargo 25 mg PO DAILY PM 12/15/20 12/15/20 Sprinkle] Pantoprazole [Protonix] 40 mg PO DAILY 12/15/20 12/15/20 Tramadol HCl [Tramadol HCl ER] 100 mg PO DAILY 12/15/20 12/15/20 - Allergies Allergies/Adverse Reactions: Allergies Allergy/AdvReac Type Severity Reaction Status Date / Time codeine Allergy Nausea Verified 12/15/20 19:06 morphine Allergy Nausea Verified 12/15/20 19:06 - Social History Does the pt smoke?: No Smoking Status: Never smoker Does the pt drink ETOH?: No Does the pt have substance abuse?: No - Immunizations Immunizations are current?: Yes - POLST Patient has POLST: No POLST Status: Full Code PD ED PE NORMAL - Vitals Vital signs reviewed: Yes - General General: Alert and oriented X 3, No acute distress - Back Back: No CVA TTP, No spinal TTP - Derm Derm: Normal color, Warm and dry - Extremities Extremities: Other (Mild overall swelling of the right knee but without obvious effusion. No bony tenderness. Some discomfort over the lateral joint line when palpated. Ligamentous testing is without laxity. No popliteal tenderness.) - Neuro Neuro: Alert and oriented X 3, Normal speech Results - Vitals Vitals: Vital Signs - 24 hr 12/15/20 19:06 Temperature 36.5 C Heart Rate 82 Respiratory 16 Rate Blood Pressure 138/90 H O2 Saturation 95 Oxygen O2 Source Room air - Rads (name of study) R knee XR Radiology: EMP read contemporaneously PD MEDICAL DECISION MAKING - ED course ED course: 80-year-old woman with atraumatic right knee pain, seems consistent with an arthritic cause. Mild degenerative changes on x-ray without acute trauma. No abnormality on ligamentous testing. Nothing in the history or physical to suggest DVT. Feeling better after hydrocodone here. I am prescribing a short course of short-acting opioid pain medication for this patient. I have reviewed the patients NETWORK FIELD ENGINEER and no concerning findings were noted. I have discussed that the opioids are for short term therapy only, and will not be refilled from the ED. Departure - Departure Disposition: 01 Home, Self Care Clinical Impression: Knee pain Qualifiers: Chronicity: acute Laterality: right Qualified Code(s): M25.561 - Pain in right knee Condition: Good Record reviewed to determine appropriate education?: Yes Instructions: ED Knee Pain UKO Prescriptions: HYDROcod/ACETAM 5/325 [[place] 5/325] 1 - 2 tab PO Q6H PRN #15 tablet PRN Reason: Pain Comments: Follow-up with your doctor this coming week as scheduled. Return for new or worsening symptoms. Prescription sent electronically to [facility] in [place]. I am prescribing a short course of narcotic pain medication for you. These are potentially dangerous and addictive medications that should be used carefully. These medications may constipate you. Take an [id number]-[id number] stool softener (docusate) twice daily with plenty of water while taking these medications. If you go 24 hours without a bowel movement, take [id number] miralax, per package instructions. Do not drink or drive while taking these medications. If you received narcotic or sedating medications while in the emergency department, do not drive for 24 hours. Store this medication in a safe, secure place and out of reach of children. It is a violation of federal law to give or sell this medication to another person or to use in a manner other than prescribed. The ED will not refill narcotic prescriptions, including prescriptions lost or stolen. To dispose of unwanted medications: 1. [facility] at [address] in [place] has a medication drop box. They accept prescription medications (in pill form) Thursday through Thursday 9:00 a.m. to 5:00 p.m. 2. The [facility] [employer] accepts prescription medications (in pill form only) for disposal year round. Call for more information. 3. Contact the [facility] for the next [facility] sponsored prescription drug collection event. , [phone], or [phone]; Note that many narcotic pain relievers also contain Tylenol/acetaminophen. Please ensure that your total dose of acetaminophen from all sources does not exceed 3 g (3000 mg) per day.
--- NOTE | 2020-12-15 20:01 | XRAY Report ---
PROCEDURE: Knee 4 View RT INDICATIONS: Trauma TECHNIQUE: 3 views of the right knee(s) were acquired. COMPARISON: None. FINDINGS: Bones: No fractures or dislocations. The knee has mild degenerative changes. No suspicious bony les ions. Soft tissues: No joint effusion. No suspicious soft tissue calcifications. IMPRESSION: No acute abnormality of the right knee. Reviewed by: Obed Galindo on 12/15/2020 8:00 PM PDT Approved by: Obed Galindo on 12/15/2020 8:00 PM PDT Station ID: [id number]
[2020-12-15] MEDS ORDERED: HYDROcod/ACET 5/325 Prepack 4 PO STA (20:42)
[2020-12-15 21:00] VITALS: BP 156/62
== END 2020-12-15 20:59 | disposition home or self-care (01) ==
LOC: ED 19:01
DX: M25.561 Pain in right knee (principal)
CPT/HCPCS: 73564; 99283; A9270

== ENCOUNTER 2021-05-09 16:13 | Outpatient (CLI) | payer MEDICARE, OTHER | END 2021-05-09 16:14 | disposition EMS.NT | LOC: EMS 16:13 | DX: Z03.89 Encounter for observation for other suspected diseases and conditions ruled out (principal) ==

== ENCOUNTER 2021-08-03 09:26 | Emergency (ER) | payer MEDICARE, OTHER ==
--- NOTE | 2021-08-03 11:27 | Ultrasound Report ---
PROCEDURE: Duplex Ext Veins Right INDICATIONS: swelling and pain to calf up to groin. TECHNIQUE: Real-time imaging, as well as color and pulse Doppler interrogation, were performed of the lower extr emity deep veins from the inguinal ligament to the popliteal fossa. COMPARISON: Venous duplex ultrasound, right lower extremity, 11/28/2018. FINDINGS: The deep veins are normally compressible, and free of intraluminal thrombus. Color and pu lse Doppler demonstrate normal phasic intraluminal flow. There is normal augmentation response to di stal compression maneuver. Note is made of a small Leiva's cyst. IMPRESSION: No DVT in the right lower extremity. Reviewed by: Brittani Mcdonald MD on 08/03/2021 10:26 AM RICHAR Approved by: Brittani Mcdonald MD on 08/03/2021 10:26 AM RICHAR Station ID: [id number]
[2021-08-03 12:00] VITALS: BP 132/54
--- NOTE | 2021-08-03 12:06 | ED Physician Documentation ---
History of Present Illness - Stated complaint Stated Complaint: R LEG SWELLING/PAIN - Chief complaint Chief Complaint: Ext Problem - History obtained from History obtained from: Patient, Family - History of Present Illness Timing: Yesterday - Additonal information Additional information: 80-year-old female had been unable to ambulate adequately for the past 2 years and she had an injection into her right knee as a nerve block and she is now been able to begin ambulating and she has been ambulating more over the past month. She is now developed some swelling and pain to her right leg. She was asked by primary to come into the emergency department for evaluation. She denies any shortness of breath she does have pain with ambulation and feels that her knee is somewhat swollen. 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: None : None HEENT: None Psych: None Musculoskeletal: None Derm: None - Past Surgical History Past Surgical History: Yes General: Cholecystectomy Ortho: Rotator cuff repair, Other /EARLY CHILDHOOD EDUCATION COORDINATOR: Hysterectomy Cardiovascular: Coronary stent HEENT: Tonsil/Adenoidectomy - Present Medications Home Medications: Ambulatory Orders Medication Instructions Recorded Confirmed Atorvastatin [Lipitor] 40 mg PO DAILY 04/19/17 08/03/21 Acetaminophen [Tylenol] 650 mg PO Q6HR PRN 12/15/20 08/03/21 Aspirin [[place] Aspirin] 81 mg PO DAILY PM 12/15/20 08/03/21 Clopidogrel [Plavix] 75 mg PO DAILY 12/15/20 08/03/21 Cyclobenzaprine [Flexeril] 10 mg PO Q8HR PRN 12/15/20 08/03/21 Losartan Potassium 25 mg PO DAILY 12/15/20 08/03/21 Metoprolol Succinate [Kapspargo 25 mg PO DAILY PM 12/15/20 08/03/21 Sprinkle] Pantoprazole [Protonix] 40 mg PO DAILY 12/15/20 08/03/21 - Allergies Allergies/Adverse Reactions: Allergies Allergy/AdvReac Type Severity Reaction Status Date / Time codeine Allergy Nausea Verified 08/03/21 09:55 morphine Allergy Nausea Verified 08/03/21 09:55 - Social History Does the pt smoke?: No Smoking Status: Never smoker Does the pt drink ETOH?: No Does the pt have substance abuse?: No - Immunizations Immunizations are current?: Yes - POLST Patient has POLST: No POLST Status: Full Code PD ED PE NORMAL - Vitals Vital signs reviewed: Yes (Hypertensive) - General General: Alert and oriented X 3, No acute distress, Well developed/nourished - HEENT HEENT: Atraumatic, PERRL, EOMI - Neck Neck: Supple, no meningeal sign - Respiratory Respiratory: No respiratory distress - Derm Derm: Normal color, Warm and dry, No rash - Extremities Extremities: Other (~The patient has large thighs and tiny calfs.There is mild tenderness to the posterior calf and to the popliteal fossa there is some tenderness on the anterior thigh leading up to the groin. I am not able to appreciate significant swelling. 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, No motor deficit, No sensory deficit, Normal speech Eye Opening: Spontaneous Motor: Obeys Commands Verbal: Oriented GCS Score: 15 - Psych Psych: Normal mood, Normal affect Results - Vitals Vitals: Vital Signs - 24 hr 08/03/21 08/03/21 09:38 11:42 Temperature 36.8 C Heart Rate 80 75 Respiratory 18 18 Rate Blood Pressure 139/113 H 132/54 H O2 Saturation 95 97 Oxygen O2 Source Room air - Rads (name of study) duplex viens Radiology: Prelim report reviewed (Impression: No DVT in the right lower extremity.), EMP read indepedently, See rad report PD MEDICAL DECISION MAKING - ED course Complexity details: reviewed old records, reviewed results, re-evaluated patient, considered differential, d/w patient, d/w family ED course: 80-year-old female with swelling and pain in her right leg after she is has begun ambulating more following a nerve block in her knee. I suspect she has deconditioning to her lower extremity and she is feeling better and walking more and now has overdone it. There is no evidence of deep vein thrombosis and I believe this was the underlying reason the patient was sent to the emergency department to evaluate. I discussed with the patient the likely need for physical therapy and have asked her to follow-up with Dr. Wheatley to get a prescription for physical therapy and the patient is interested in pool therapy Departure - Departure Disposition: 01 Home, Self Care Clinical Impression: Muscle strain of right lower leg Qualifiers: Encounter type: initial encounter Qualified Code(s): S86.911A - Strain of unspecified muscle(s) and tendon(s) at lower leg level, right leg, initial encounter Condition: Stable Instructions: ED Strain Muscle Ext Follow-Up: ANDRAE JOVEL MD [Primary Care Provider] - Comments: Maryellen, today you do not have evidence of a deep vein thrombosis in your right leg. I suspect the swelling and pain you are having in your leg has to do with using your leg again after a period of 2 years of no significant walking. My recommendation is to follow-up with Dr. Jovel to get a prescription for physical therapy to improve the strength in your legs. Discharge Date/Time: 08/03/21 12:20
== END 2021-08-03 12:20 | disposition home or self-care (01) ==
LOC: ED 09:26
DX: S86.911A Strain of unspecified muscle(s) and tendon(s) at lower leg level, right leg, initial encounter (principal); X58.XXXA Exposure to other specified factors, initial encounter; I10 Essential (primary) hypertension
CPT/HCPCS: 99282; 99284

== ENCOUNTER 2021-08-30 16:30 | Emergency (ER) | payer MEDICARE, OTHER ==
[2021-08-30 16:45] VITALS: BP 119/59
[2021-08-30] MEDS ORDERED: ACETAMINOPHEN 325 MG TABLET PO STA (16:51)
--- NOTE | 2021-08-30 16:54 | ED Physician Documentation ---
History of Present Illness - Stated complaint Stated Complaint: C+ - Chief complaint Chief Complaint: General - History obtained from History obtained from: Patient - History of Present Illness Timing: Today Pain level max: 0 Pain level now: 0 - Additonal information Additional information: 80-year-old female presents to the emergency department after receiving a diagnosis of COVID last night. She has been sick for 3 days. Cough, congestion, fevers, body aches. Has had her COVID vaccinations. She does not know her medications. She states that she is not have any difficulty breathing but she did put a pulse oximeter on at home and it was low but she does not know what the number was. Here she is 94% on room air. Review of Systems Constitutional: reports: Fever Nose: denies: Rhinorrhea / runny nose, Congestion Respiratory: reports: Cough GI: denies: Abdominal Pain, Nausea, Vomiting, Diarrhea Skin: denies: Rash Musculoskeletal: denies: Neck pain, Back pain Neurologic: denies: Headache PD PAST MEDICAL HISTORY - Past Medical History Past Medical History: Yes Cardiovascular: Hypertension, High cholesterol, Coronary artery disease Respiratory: None Neuro: None Endocrine/Autoimmune: None GI: None ALIGNER: None : None HEENT: None Psych: None Musculoskeletal: None Derm: None - Past Surgical History Past Surgical History: Yes General: Cholecystectomy Ortho: Rotator cuff repair, Other /ALIGNER: Hysterectomy Cardiovascular: Coronary stent HEENT: Tonsil/Adenoidectomy - Present Medications Home Medications: Ambulatory Orders Medication Instructions Recorded Confirmed Atorvastatin [Lipitor] 40 mg PO DAILY 04/19/17 08/03/21 Acetaminophen [Tylenol] 650 mg PO Q6HR PRN 12/15/20 08/03/21 Aspirin [[place] Aspirin] 81 mg PO DAILY PM 12/15/20 08/03/21 Clopidogrel [Plavix] 75 mg PO DAILY 12/15/20 08/03/21 Cyclobenzaprine [Flexeril] 10 mg PO Q8HR PRN 12/15/20 08/03/21 Losartan Potassium 25 mg PO DAILY 12/15/20 08/03/21 Metoprolol Succinate [Kapspargo 25 mg PO DAILY PM 12/15/20 08/03/21 Sprinkle] Pantoprazole [Protonix] 40 mg PO DAILY 12/15/20 08/03/21 - Allergies Allergies/Adverse Reactions: Allergies Allergy/AdvReac Type Severity Reaction Status Date / Time codeine Allergy Nausea Verified 08/30/21 16:45 morphine Allergy Nausea Verified 08/30/21 16:45 - Social History Does the pt smoke?: No Smoking Status: Never smoker Does the pt drink ETOH?: No Does the pt have substance abuse?: No - Immunizations Immunizations are current?: Yes - POLST Patient has POLST: No POLST Status: Full Code PD ED PE NORMAL - Vitals Vital signs reviewed: Yes - General General: Alert and oriented X 3, No acute distress, Well developed/nourished - HEENT HEENT: PERRL, Moist mucous membranes - Neck Neck: Supple, no meningeal sign - Cardiac Cardiac: RRR, Strong equal pulses - Respiratory Respiratory: No respiratory distress, Clear bilaterally - Abdomen Abdomen: Soft, Non tender, Non distended - Derm Derm: Warm and dry - Extremities Extremities: No edema, No calf tenderness / cord - Neuro Neuro: Alert and oriented X 3, 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, No motor deficit, No sensory deficit, Normal speech - Psych Psych: Normal mood, Normal affect Results - Vitals Vitals: Vital Signs - 24 hr 08/30/21 16:41 Temperature 37.0 C Heart Rate 82 Respiratory 20 Rate Blood Pressure 119/59 L O2 Saturation 94 Oxygen O2 Source Room air - Labs Labs: Laboratory Tests 08/30/21 08/30/21 17:05 17:05 WBC 8.1 RBC 4.11 L Hgb 12.7 Hct 40.0 MCV 97.3 MCH 30.9 MCHC 31.8 L RDW 12.8 Plt Count 183 MPV 9.3 Neut # (Auto) 6.5 Lymph # (Auto) 0.6 L Long # (Auto) 1.0 Eos # (Auto) 0.0 Baso # (Auto) 0.0 Absolute Nucleated RBC 0.00 Nucleated RBC % 0.0 Sodium 134 L Potassium 4.0 Chloride 101 Carbon Dioxide 25 Anion Gap 8.0 BUN 16 Creatinine 0.8 Estimated GFR (MDRD) 69 L Glucose 100 Calcium 9.3 - Rads (name of study) Chest x-ray Radiology: Final report received, EMP read contemporaneously, See rad report (No acute abnormality) PD MEDICAL DECISION MAKING - ED course Complexity details: reviewed results, re-evaluated patient, considered differential, d/w patient ED course: Patient is well-appearing, nontoxic. Did have a slight fever here, was given Tylenol. She is not hypoxic. Does not require admission. We will prescribe Paxlovid. She will stop her atorvastatin. Patient will follow up with her doctor for further care. Patient counseled regarding signs and symptoms for which I believe and urgent re-evaluation would be necessary. Patient with good understanding of and agreement to plan and is comfortable going home at this time This document was made in part using voice recognition software. While efforts are made to proofread this document, sound alike and grammatical errors may occur. Departure - Departure Disposition: Home, Self Care Clinical Impression: COVID Condition: Good Instructions: ED Viral Syndrome Follow-Up: ANDRAE MAYS MD [Primary Care Provider] - Within 1 week Comments: We have prescribed Paxlovid for your COVID. Take the medication as prescribed. Follow-up with your doctor for further care. Return if you worsen. Drink plenty of fluids and rest. You need to stop taking your atorvastatin while you are taking the Paxlovid as this can interact with the medication. Isolation precautions for COVID Day 0 is your first day of symptoms or a positive viral test. Day 1 is the first full day after your symptoms developed or your test specimen was collected. If you have COVID-19 or have symptoms, isolate for at least 5 days. IF YOU: Tested positive for COVID-19 or have symptoms, regardless of vaccination status Stay home for at least 5 days Stay home for 5 days and isolate from others in your home. Wear a well-fitting mask if you must be around others in your home. Do not travel. Ending isolation if you had symptoms End isolation after 5 full days if you are fever-free for 24 hours (without the use of fever-reducing medication) and your symptoms are improving. Ending isolation if you did NOT have symptoms End isolation after at least 5 full days after your positive test. If you got very sick from COVID-19 or have a weakened immune system You should isolate for at least 10 days. Consult your doctor before ending isolation. Take precautions until day 10 Wear a well-fitting mask Wear a well-fitting mask for 10 full days any time you are around others inside your home or in public. Do not go to places where you are unable to wear a mask. Do not travel Do not travel until a full 10 days after your symptoms started or the date your positive test was taken if you had no symptoms. Avoid being around people who are more likely to get very sick from COVID-19. Discharge Date/Time: 08/30/21 19:15
[2021-08-30 17:12] LABS: BASOPHILS % (AUTO) 0.2 %; EOSINOPHILS % (AUTO) 0.1 %; HGB - HEMOGLOBIN 12.7 g/dL (12.0-16.0); LYMPHOCYTES # (AUTO) 0.6 10^3/uL (1.5-3.5); LYMPHOCYTES % (AUTO) 6.8 %; MEAN CORPUSCULAR HEMOGLOBIN 30.9 pg (27.0-31.0); MEAN CORPUSCULAR HGB CONC 31.8 g/dL (32.0-36.0); MEAN CORPUSCULAR VOLUME 97.3 fL (81.0-99.0); MEAN PLATELET VOLUME 9.3 fL (7.9-10.8); MONOCYTES % (AUTO) 11.9 %; NEUTROPHILS # (AUTO) 6.5 10^3/uL (1.5-6.6); NEUTROPHILS % (AUTO) 80.6 %; PLT - PLATELET COUNT 183 10^3/uL (130-450); RED BLOOD COUNT 4.11 10^6/uL (4.20-5.40); RED CELL DISTRIBUTION WIDTH 12.8 % (12.0-15.0); WHITE BLOOD COUNT 8.1 x10^3/uL (4.8-10.8)
[2021-08-30 17:23] LABS: CALCIUM 9.3 mg/dL (8.5-10.3); CREATININE 0.8 mg/dL (0.4-1.0)
--- NOTE | 2021-08-30 17:55 | XRAY Report ---
PROCEDURE: Chest 1 View X-Ray INDICATIONS: covid, fever TECHNIQUE: One view of the chest was acquired. COMPARISON: Chest radiographs 11/28/2018 FINDINGS: Surgical changes and devices: None. Lungs and pleura: No pleural effusions or pneumothorax. Lungs are clear. Patient is mildly rotated towards the right. Mediastinum: Mediastinal contours appear normal. Heart size is normal. Bones and chest wall: No suspicious bony lesions. Overlying soft tissues appear unremarkable. IMPRESSION: No acute cardiopulmonary abnormality. Reviewed by: Jose Antonio Ricardo MD on 08/30/2021 5:53 PM PDT Approved by: Jose Antonio Ricardo MD on 08/30/2021 5:53 PM PDT Station ID: [id number]
[2021-08-30] MEDS ORDERED: NIRMATRELVIR/RITONAVIR PREPACK PO STA (17:59)
== END 2021-08-30 19:15 | disposition home or self-care (01) ==
LOC: EDUNIT# → ED 16:30
DX: U07.1 COVID-19 (principal); I10 Essential (primary) hypertension; R53.1 Weakness; R11.0 Nausea; R51.9 Headache, unspecified
CPT/HCPCS: 36415; 71045; 80048; 85025; 96374; 96375; 99282; 99283; 99284; A9270; J3490